=== PATIENT | female | born 1990 | race Two or more races ===

== ENCOUNTER 2022-04-21 18:58 | Emergency (ER) | payer OTHER ==
[~2022-04-21] VITALS: Ht 165.1 cm; Wt 65.7 kg
[2022-04-21] MEDS ORDERED: PROM1SOL4 PO (22:58)
[2022-04-21] MEDS ORDERED: IBUPROFEN 800 MG TAB PO ONE (23:00)
[2022-04-21 23:05] VITALS: BP 118/87
== END 2022-04-21 23:25 | disposition home or self-care (01) ==
LOC: ER 18:58
DX: J06.9 Acute upper respiratory infection, unspecified (principal); Z20.822 Contact with and (suspected) exposure to COVID-19
CPT/HCPCS: 36415; 71046; 87426; 87804